=== PATIENT | male | born 1970 | race Caucasian/White ===

== ENCOUNTER 2019-10-10 18:16 | Emergency (ER) | payer BC ==
[2019-10-10 18:26] VITALS: BP 136/82; PULSE 120; RESP 18; TEMP 98.1
--- NOTE | 2019-10-10 18:49 | ED ---
General Adult HPI - General Chief complaint: Recheck/Abnormal Lab/Rx Stated complaint: Poss Blood Clot Time Seen by Provider: 10/10/19 18:29 Source: patient Mode of arrival: ambulatory Limitations: no limitations - History of Present Illness Initial comments: Dictation was produced using [employer] dictation software. please excuse any gra mmatical, word or spelling errors. Chief Complaint: 49-year-old male presents with left lower extremity pain History of Present Illness: 49-year-old male presents with left lower extremity pain. Patient states that yesterday he slipped causing him to do a split position while at work. Patient states he immediately experienced pain to his left posterior thigh. Patient states this morning he woke up noted there is a lot of bruising to his posterior lateral thigh. Patient states that he has significant pain with flexion of the knee and external rotation. He was seen at [facility] where he was immediately referred to our hospital to get an ultrasound to look for deep venous thrombosis. Patient has no history of blood clots. He has no calf Pain. He has no chest pain or shortness of breath. He has no calf swelling. The ROS documented in this emergency department record has been reviewed and confirmed by me. Those systems with pertinent positive or negative responses have been documented in the HPI. All other systems are other negative and/or noncontributory. PHYSICAL EXAM: General Impression: Alert and oriented x3, not in acute distress HEENT: Normocephalic atraumatic, extra-ocular movements intact, pupils equal and reactive to light bilaterally, mucous membranes moist. Cardiovascular: Heart regular rate and rhythm, S1&S2 audible, no murmurs, rubs or gallops Chest: Lungs clear to auscultation bilaterally, no rhonchi, no wheeze, no rales Abdomen: Bowel sounds present, abdomen soft, non-tender, non-distended, no organomegaly Musculoskeletal: Pulses present and equal in all extremities, no peripheral edema left lower extremity shows ecchymoses to the posterior and lateral thigh. Patient complains of some mild pain with knee flexion. No popliteal tenderness. Calf areas are symmetrical in size. Motor: no focal deficits noted Neurological: CN II-XII grossly intact, no focal motor or sensory deficits noted Skin: Intact with no visualized rashes Psych: Normal affect and mood ED course: 49-year-old male presents with referral from [facility] emergency department for left lower extremity ultrasound looking for DVT. Vital signs upon arrival shows heart rate of 120, rest vital signs except limits. There is strong clinical suspicion of ecchymoses secondary to musculoskeletal tear.Venous duplex ultrasound left lower extremity is unremarkable for DVT. Patient discharged given referral to Dr. Hester orthopedic surgery. - Related Data Allergies Allergy/AdvReac Type Severity Reaction Status Date / Time No Known Allergies Allergy Verified 10/10/19 18:26 Review of Systems ROS Statement: Those systems with pertinent positive or pertinent negative responses have been documented in the HPI. ROS Other: All systems not noted in ROS Statement are negative. Past Medical History Past Medical History: Asthma, Diabetes Mellitus, Hyperlipidemia, Hypertension History of Any Multi-Drug Resistant Organisms: None Reported Past Surgical History: Hernia Repair, Orthopedic Surgery Additional Past Surgical History / Comment(s): hand. Past Psychological History: No Psychological Hx Reported Smoking Status: Former smoker Past Alcohol Use History: None Reported Past Drug Use History: None Reported General Exam Limitations: no limitations Course Vital Signs 10/10/19 18:23 Temperature 98.1 F Pulse Rate 120 H Respiratory 18 Rate Blood Pressure 136/82 O2 Sat by Pulse 97 Oximetry Disposition Clinical Impression: Superficial bruising of lower leg Disposition: HOME SELF-CARE Condition: Good Instructions (If sedation given, give patient instructions): Ecchymosis (ED) Is patient prescribed a controlled substance at d/c from ED?: No Referrals: Blayne Hester MD [STAFF PHYSICIAN] - 1-2 days Time of Disposition: 19:46
--- NOTE | 2019-10-10 19:14 | US ---
EXAMINATION TYPE: US venous doppler duplex LE LT DATE OF EXAM: 10/10/2019 6:30 PM COMPARISON: NONE CLINICAL HISTORY: 49-year-old male rule out DVT. Ecchymosis to left leg after falling to ground 5 day s ago. SIDE PERFORMED: Left TECHNIQUE: The lower extremity deep venous system is examined utilizing real time linear array sonog sarah with graded compression, doppler sonography and color-flow sonography. FINDINGS: VESSELS IMAGED: Common Femoral Vein Deep Femoral Vein Greater Saphenous Vein * Femoral Vein Popliteal Vein Small Saphenous Vein * Proximal Calf Veins (* superficial vessels) Left Leg: Negative for DVT. Additional targeted scanning along the medial anterior aspect of the kne e at the site of bruising shows no discrete abnormality. IMPRESSION: No evidence for DVT within the left lower extremity imaged from the groin to the upper calf.
== END 2019-10-10 20:09 | disposition home or self-care (01) ==
LOC: EC 18:16
DX: S70.12XA Contusion of left thigh, initial encounter (principal); E11.9 Type 2 diabetes mellitus without complications; I10 Essential (primary) hypertension; Z87.891 Personal history of nicotine dependence; W01.0XXA Fall on same level from slipping, tripping and stumbling without subsequent striking against object, initial encounter
CPT/HCPCS: 99283